=== PATIENT | female | born 1965 | race Caucasian/White ===

== ENCOUNTER 2016-07-31 10:31 | Emergency (ER) | payer BC ==
[2016-07-31] MEDS ORDERED: ONDANSETRON 4 MG TAB.RAPDIS PO ONE (10:49)
[2016-07-31] MEDS ORDERED: HYDROCODONE/ACETAMINOPHEN 5-325 MG TABLET PO ONE (10:49)
--- NOTE | 2016-07-31 10:53 | ER Document Report ---
ED Medical Screen (RME) - General Stated Complaint: LEFT SIDE PAIN Mode of Arrival: Ambulatory Information source: Patient Notes: 51 y/o F presents to ED c/o abd pain. Pt reports pain to mid abd that radiates around left side to left back. Persisting over the last 3 weeks. Last BM yesterday. States pain is sharp and feels like skin is burning/tender. Denies fever. I have greeted and performed a rapid initial assessment of this patient. A comprehensive ED assessment and evaluation of the patient, analysis of test results and completion of the medical decision making process will be conducted by additional ED providers. - Related Data Allergies/Adverse Reactions: cefaclor [From Ceclor] Allergy (Verified 07/31/16 10:48) Physical Exam - General General appearance: Alert In distress: None - Respiratory Respiratory status: No respiratory distress - Cardiovascular Pulses: Normal: Radial Normal capillary refill: Yes
--- NOTE | 2016-07-31 11:08 | ER Document Report ---
ED GI/ - General Chief Complaint: Abdominal Pain Stated Complaint: LEFT SIDE PAIN Time seen by provider: 11:08 Mode of Arrival: Ambulatory Notes: 51 yo untreated diabetic (no insuranc) c/o LLQ abdominal pain for 3 weeks, is getting worse past few days. Crying. Nausea but no vomiting. No constipation or diarrhea. No dysuria. No vaginal dx. hx hyst. cholecystectomy. No hx crohns, colitis, diverticulitis. No fever. TRAVEL OUTSIDE OF THE [place] IN LAST 30 DAYS: No - Related Data Allergies/Adverse Reactions: cefaclor [From [email or web address]] Allergy (Verified 07/31/16 10:48) Past Medical History - General Information source: Patient - Social History Smoking Status: Former Smoker Chew tobacco use (# tins/day): No Frequency of alcohol use: Rare Drug Abuse: None Lives with: Spouse/Significant other Family History: Reviewed & Not Pertinent Patient has suicidal ideation: No Patient has homicidal ideation: No Endocrine Medical History: Reports: Hx Diabetes Mellitus Type 2 Renal/ Medical History: Denies: Hx Peritoneal Dialysis Past Surgical History: Reports: Hx Cholecystectomy, Hx Hysterectomy Review of Systems - Review of Systems Constitutional: No symptoms reported EENT: No symptoms reported Cardiovascular: No symptoms reported Respiratory: No symptoms reported Gastrointestinal: See HPI Genitourinary: No symptoms reported Female Genitourinary: No symptoms reported Musculoskeletal: No symptoms reported Skin: No symptoms reported Hematologic/Lymphatic: No symptoms reported Neurological/Psychological: No symptoms reported Physical Exam - Vital signs Vitals: Temp Pulse Resp BP Pulse Ox 97.9 F 98 18 113/74 99 07/31/16 10:39 07/31/16 10:39 07/31/16 10:39 07/31/16 10:39 07/31/16 10:39 Interpretation: Normal - General General appearance: Appears well, Alert, Anxious - HEENT Head: Normocephalic, Atraumatic Eyes: Normal Conjunctiva: Normal Pupils: PERRL Mucous membranes: Dry Pharynx: Normal Neck: Supple. No: Lymphadenopathy - Respiratory Respiratory status: No respiratory distress Chest status: Nontender Breath sounds: Normal Chest palpation: Normal - Cardiovascular Rhythm: Regular Heart sounds: Normal auscultation Murmur: No - Abdominal Inspection: Normal Distension: No distension Bowel sounds: Normal Tenderness: Tender - LLQ. No: Guarding, Rebound Organomegaly: No organomegaly. No: Hepatomegaly, Splenomegaly - Back Back: Normal, Nontender. No: CVA tenderness - Extremities General upper extremity: Normal inspection, Nontender, Normal color, Normal ROM , Normal temperature General lower extremity: Normal inspection, Nontender, Normal color, Normal ROM , Normal temperature, Normal weight bearing. No: Zachary's sign - Neurological Neuro grossly intact: Yes Cognition: Normal Orientation: AAOx4 Sanchez Coma Scale Eye Opening: Spontaneous [place] Coma Scale Verbal: Oriented [place] Coma Scale Motor: Obeys Commands [place] Coma Scale Total: 15 Speech: Normal Motor strength normal: LUE, RUE, LLE, RLE Sensory: Normal - Psychological Associated symptoms: Normal affect, Normal mood - Skin Skin Temperature: Warm Skin Moisture: Dry Skin Color: Normal Skin irregularity: negative: Rash Course - Re-evaluation Re-evalutation: 07/31/16 11:44 I have consulted with the supervisory physician per [facility] Guidelines. For the CT scan, Dr. ANDERSON 07/31/16 12:25 Patient has had a hysterectomy but has a faint positive hCG, inflammatory bowel disease can cause a but I did order a quantitative hCG. 07/31/16 15:16 Will start patient back on metformin her glucose came down to 294 with 2 L of IV fluid. He T scan shows constipation otherwise normal. Discussed the case again with Dr. ANDERSON. 07/31/16 15:19 1 more liter of NS ordered. Pt feels better, non tender left abdomen. Dr. Anderson OK with sending pt home. Advised pt to take miralax, not laxatives which will cause cramping. - Vital Signs Vital signs: Temp Pulse Resp BP Pulse Ox 97.9 F 84 18 122/64 98 07/31/16 16:31 07/31/16 16:31 07/31/16 16:31 07/31/16 16:31 07/31/16 16:31 - Laboratory Result Diagrams: 07/31/16 11:15 07/31/16 11:15 Laboratory results interpreted by me: 07/31/16 07/31/16 07/31/16 11:15 11:15 11:15 Hgb 15.6 H Sodium 136.1 L Chloride 97 L Glucose 424 H* POC Glucose Calcium 10.3 H Total Bilirubin 1.7 H Serum HCG, Qual POSITIVE H Urine Glucose (UA) Urine Ketones Ur Leukocyte Esterase 07/31/16 07/31/16 11:15 14:50 Hgb Sodium Chloride Glucose POC Glucose 294 H Calcium Total Bilirubin Serum HCG, Qual Urine Glucose (UA) >=500 H Urine Ketones 80 H Ur Leukocyte Esterase LARGE H Discharge - Discharge Clinical Impression: constipation, left lower quadrant abdominal pain, dehydration, uncontrolled diabetes Condition: Good Disposition: HOME, SELF-CARE Instructions: Abdominal Pain (OM), Constipation (OM), Diabetes (OM), Glucophage ([facility]), Family Physicians / Practices Additional Instructions: to er if worse take miralax 1 capful in full glass of water daily drink 2 liters of water daily copy of labs and ct scan given to you take the metformin daily see family practice doctor next week for establishing care and glucose recheck Prescriptions: Metformin HCl [Metformin HCl ER] 500 mg PO BID #[id number]
[2016-07-31 11:34] LABS: HEMATOCRIT 44.2 % (36.0-47.0); HEMOGLOBIN 15.6 g/dL (12.0-15.5); HGB HCT DIFFERENCE 2.6; MEAN CORPUSCULAR HEMOGLOBIN 31.2 pg (27.0-33.4); MEAN CORPUSCULAR HGB CONC 35.4 g/dL (32.0-36.0); MEAN CORPUSCULAR VOLUME 88 fl (80-97); RED BLOOD COUNT 5.01 10^6/uL (3.72-5.28); RED CELL DISTRIBUTION WIDTH 12.6 % (11.5-14.0); WHITE BLOOD COUNT 8.2 10^3/uL (4.0-10.5)
[2016-07-31 11:38] LABS: APPEARANCE,URINE SLIGHTLY-CLOUDY; BILIRUBIN,URINE NEGATIVE (NEGATIVE); GLUCOSE, URINE >=500 mg/dL (NEGATIVE); KETONES,URINE 80 mg/dL (NEGATIVE); LEUKOCYTE ESTERASE,URINE LARGE (NEGATIVE); NITRITE,URINE NEGATIVE (NEGATIVE); PROTEIN,URINE NEGATIVE (NEGATIVE); URINE SPECIFIC GRAVITY 1.033; UROBILINOGEN,URINE NEGATIVE mg/dL (<2.0)
[2016-07-31] MEDS ORDERED: MORPHINE SULFATE 10 MG/ML INJ IV ONE (11:40)
[2016-07-31] MEDS ORDERED: ONDANSETRON HCL INJ/PF 4 MG/2 ML SDV IV ONE (11:40)
[2016-07-31 11:56] LABS: ALANINE AMINOTRANSFERASE 33 U/L (9-52); ALBUMIN 4.7 g/dL (3.5-5.0); ALKALINE PHOSPHATASE 109 U/L (38-126); ANION GAP 15 (5-19); ASPARTATE AMINO TRANSFERASE 17 U/L (14-36); BILIRUBIN,TOTAL 1.7 mg/dL (0.2-1.3); BLOOD UREA NITROGEN 11 mg/dL (7-20); CALCIUM 10.3 mg/dL (8.4-10.2); CARBON DIOXIDE 24 mmol/L (22-30); CHLORIDE 97 mmol/L (98-107); CREATININE RESULT 0.54 mg/dL (0.52-1.25); LIPASE 149.3 U/L (23-300); POTASSIUM 4.8 mmol/L (3.6-5.0); SODIUM 136.1 mmol/L (137-145); TOTAL PROTEIN 7.4 g/dL (6.3-8.2)
[2016-07-31 11:58] LABS: BASOPHILS % (MANUAL) 0 % (0-2); EOSINOPHILS % (MANUAL) 0 % (0-6); LYMPHOCYTES % (MANUAL) 28 % (13-45); TOTAL CELLS COUNTED 100
[2016-07-31 11:59] LABS: RBC MORPHOLOGY COMMENT NORMO-CYTIC/CHROMIC
[2016-07-31 12:07] LABS: GLUCOSE 424 mg/dL (75-110)
[2016-07-31] MEDS ORDERED: NORMAL SALINE 1000 ML 2,000 ML IV ONE (12:13)
[2016-07-31] MEDS ORDERED: DIPHENHYDRAMINE HCL 50 MG/ML VIAL IV ONE (13:40)
[2016-07-31] MEDS ORDERED: NORMAL SALINE 1000 ML 1,000 ML IV ONE (15:28)
[2016-07-31 16:32] VITALS: BP 122/64
== END 2016-07-31 16:31 | disposition home or self-care (01) ==
LOC: ER 10:31
DX: K59.00 Constipation, unspecified (principal); E11.65 Type 2 diabetes mellitus with hyperglycemia; E86.0 Dehydration; R10.32 Left lower quadrant pain; R11.0 Nausea; Z88.1 Allergy status to other antibiotic agents; Z87.891 Personal history of nicotine dependence; Z90.49 Acquired absence of other specified parts of digestive tract; Z90.710 Acquired absence of both cervix and uterus
CPT/HCPCS: 99284; 96361; 96374; 96375; 36415; 87086; 82962; 84702; 83690; 84703; 85025; 87088; 80053; 81001; 74177; J1200; S0119; J2270; J2405; J7030

== ENCOUNTER 2016-08-03 21:05 | Emergency (ER) | payer BC ==
--- NOTE | 2016-08-03 21:48 | ER Document Report ---
ED Medical Screen (RME) - General Stated Complaint: ABDOMINAL PAIN Mode of Arrival: Ambulatory Information source: Patient Notes: Patient complains of left lower pelvic pain and left flank pain for the past 3 weeks. Patient states she was seen here 4 days ago for this same complaint. Patient states that she was treated for constipation and diabetes. Patient had a CT abdomen and pelvis which just showed a large amount of stool. Last BM was today. hx: Diabetes, colon cancer, splenic aneurysm, cholecystectomy, bladder tack, hyst I have greeted and performed a rapid initial assessment of this patient. A comprehensive ED assessment and evaluation of the patient, analysis of test results and completion of the medical decision making process will be conducted by additional ED providers. TRAVEL OUTSIDE OF THE [place] IN LAST 30 DAYS: No - Related Data Allergies/Adverse Reactions: cefaclor [From Ceclor] Allergy (Verified 08/03/16 21:45) Past Medical History Endocrine Medical History: Reports: Hx Diabetes Mellitus Type 2 Renal/ Medical History: Denies: Hx Peritoneal Dialysis Past Surgical History: Reports: Hx Bowel Surgery, Hx Cholecystectomy, Hx Hysterectomy Physical Exam - Abdominal Tenderness: Tender - Left lower quadrant
[2016-08-03 22:44] LABS: ABSOLUTE BASOPHILS # (AUTO) 0.1 10^3/uL (0.0-0.2); ABSOLUTE EOSINOPHILS # (AUTO) 0.2 10^3/uL (0.0-0.6); ABSOLUTE LYMPHOCYTES (AUTO) 2.2 10^3/uL (0.5-4.7); ABSOLUTE MONOCYTES (AUTO) 0.5 10^3/uL (0.1-1.4); ABSOLUTE NEUT (AUTO) 5.9 10^3/uL (1.7-8.2); EOSINOPHILS % (AUTO) 1.7 % (0-6); HEMATOCRIT 42.4 % (36.0-47.0); HEMOGLOBIN 14.7 g/dL (12.0-15.5); HGB HCT DIFFERENCE 1.7; LYMPHOCYTES % (AUTO) 24.6 % (13-45); MEAN CORPUSCULAR HEMOGLOBIN 31.1 pg (27.0-33.4); MEAN CORPUSCULAR HGB CONC 34.6 g/dL (32.0-36.0); MEAN CORPUSCULAR VOLUME 90 fl (80-97); MONOCYTES % (AUTO) 5.8 % (3-13); RED BLOOD COUNT 4.72 10^6/uL (3.72-5.28); RED CELL DISTRIBUTION WIDTH 12.9 % (11.5-14.0); SEGMENTED NEUTROPHILS % (AUTO) 66.9 % (42-78); WHITE BLOOD COUNT 8.8 10^3/uL (4.0-10.5)
[2016-08-03 22:52] LABS: APPEARANCE,URINE CLEAR; BILIRUBIN,URINE NEGATIVE (NEGATIVE); GLUCOSE, URINE >=500 mg/dL (NEGATIVE); KETONES,URINE 20 mg/dL (NEGATIVE); LEUKOCYTE ESTERASE,URINE LARGE (NEGATIVE); NITRITE,URINE NEGATIVE (NEGATIVE); PROTEIN,URINE NEGATIVE (NEGATIVE); URINE SPECIFIC GRAVITY 1.027; UROBILINOGEN,URINE NEGATIVE mg/dL (<2.0)
[2016-08-03 23:00] LABS: ALANINE AMINOTRANSFERASE 102 U/L (9-52); ALBUMIN 4.1 g/dL (3.5-5.0); ALKALINE PHOSPHATASE 127 U/L (38-126); ANION GAP 13 (5-19); ASPARTATE AMINO TRANSFERASE 14 U/L (14-36); BILIRUBIN,TOTAL 0.9 mg/dL (0.2-1.3); BLOOD UREA NITROGEN 12 mg/dL (7-20); CALCIUM 9.8 mg/dL (8.4-10.2); CARBON DIOXIDE 24 mmol/L (22-30); CHLORIDE 99 mmol/L (98-107); CREATININE RESULT 0.47 mg/dL (0.52-1.25); GLUCOSE 381 mg/dL (75-110); LIPASE 203.8 U/L (23-300); POTASSIUM 4.3 mmol/L (3.6-5.0); SODIUM 135.5 mmol/L (137-145); TOTAL PROTEIN 6.6 g/dL (6.3-8.2)
--- NOTE | 2016-08-03 23:15 | ER Document Report ---
ED General - General Time seen by provider: 23:10 Mode of Arrival: Ambulatory Information source: Patient, Relative - spouse TRAVEL OUTSIDE OF THE [place] IN LAST 30 DAYS: No - HPI Onset: Other - see HPI Onset/Duration: Gradual, Persistent Quality of pain: Burning, Sharp, Stabbing Associated symptoms: Nausea Exacerbated by: Movement, Food Similar symptoms previously: Yes - 07/31/16 Recently seen / treated by doctor: Yes - 07/31/16 in ED <MAXINE PIERCE - Last Filed: 08/04/16 02:53> <RAIN LUNA - Last Filed: 08/04/16 04:34> - General Chief Complaint: Abdominal Pain Stated Complaint: ABDOMINAL PAIN Notes: Patient is a 51-year-old female presenting to the emergency department with complaints of abdominal pain. Patient was recently seen emergency department on 07/31/16 for the same complaint. Patient was treated for constipation and diabetes mellitus and was placed on metformin. Patient states that she still has the pain and that she also has some pain in her back. Patient's last bowel movement was today. Patient states that her pain is getting worse. Patient states that these have with movement or food exacerbates the pain. Patient is also nauseous. Patient's blood glucose level is 384. Patient has a history of colon cancer, a splenic aneurysm, a cholecystectomy, and a hysterectomy. (MAXINE PIERCE) - Related Data Allergies/Adverse Reactions: cefaclor [From Ceclor] Allergy (Verified 08/03/16 21:45) morohine Allergy (Uncoded 08/04/16 03:42) Past Medical History - General Information source: Patient, Relative - spouse - Social History Smoking Status: Former Smoker Cigarette use (# per day): No Chew tobacco use (# tins/day): No Frequency of alcohol use: Occasional Drug Abuse: None Family History: None Endocrine Medical History: Reports: Hx Diabetes Mellitus Type 2 Malignancy Medical History: Reports: Other - colon cancer Past Surgical History: Reports: Hx Bowel Surgery - splenic aneurysm, Hx Cholecystectomy, Hx Hysterectomy <MAXINE PIERCE - Last Filed: 08/04/16 02:53> Review of Systems - Review of Systems Constitutional: No symptoms reported EENT: No symptoms reported Cardiovascular: No symptoms reported Respiratory: No symptoms reported Gastrointestinal: See HPI, Abdominal pain, Nausea, Last bowel movement - today Genitourinary: No symptoms reported Female Genitourinary: No symptoms reported Musculoskeletal: No symptoms reported Skin: No symptoms reported Hematologic/Lymphatic: No symptoms reported Neurological/Psychological: No symptoms reported -: Yes All other systems reviewed and negative <MAXINE PIERCE - Last Filed: 08/04/16 02:53> Physical Exam - Vital signs Interpretation: Normal - General General appearance: Alert, Other - appears uncomfortable In distress: Mild - HEENT Head: Normocephalic, Atraumatic Eyes: Normal Pupils: PERRL Mucous membranes: Moist - Respiratory Respiratory status: No respiratory distress Chest status: Nontender Breath sounds: Normal Chest palpation: Normal - Cardiovascular Rhythm: Regular Heart sounds: Normal auscultation Murmur: No - Abdominal Inspection: Healed incision - to the midline abdomen consistent with previous abdominal surgeries Distension: No distension Bowel sounds: Normal Tenderness: Tender - epigastric pain and tenderness to palpation Organomegaly: No organomegaly - Back Back: Normal, Nontender - Extremities General upper extremity: Normal inspection, Normal ROM, Normal strength General lower extremity: Normal inspection, Normal ROM, Normal strength - Neurological Neuro grossly intact: Yes Cognition: Normal Orientation: AAOx4 [place] Coma Scale Eye Opening: Spontaneous [place] Coma Scale Verbal: Oriented [place] Coma Scale Motor: Obeys Commands [place] Coma Scale Total: 15 Speech: Normal - Psychological Associated symptoms: Normal affect, Tearful - Skin Skin Temperature: Warm Skin Moisture: Dry <STANMAXINE - Last Filed: 08/04/16 02:53> Course - Laboratory Result Diagrams: 08/03/16 22:32 08/03/16 22:32 <ROBELKEVONLIZETMAXINE - Last Filed: 08/04/16 02:53> - Laboratory Result Diagrams: 08/03/16 22:32 08/03/16 22:32 <RAIN LUNA - Last Filed: 08/04/16 04:34> - Re-evaluation Re-evalutation: 08/04/16 Patient with epigastric and left-sided lower chest tenderness to palpation. Patient had a CTA done to rule out PE or any pleural cause of her symptoms. Patient is found to have gastric diverticulum. Patient was given pain medication and also a GI cocktail. She is feeling much better. Patient will be given information to follow-up with gastroenterology. She will also be given prescription for Zofran, Carafate, omeprazole, ranitidine. Understands agrees with plan. Stable for discharge home. Return if any worsening or concerning symptoms. Taking by mouth. Stable for discharge. (RAIN LUNA) - Vital Signs Vital signs: Temp Pulse Resp BP Pulse Ox 97.6 F 89 18 127/61 H 97 08/04/16 02:40 08/04/16 02:40 08/04/16 02:40 08/04/16 02:40 08/04/16 02:40 (MAXINE PIERCE) (RAIN LUNA) - Laboratory Laboratory results interpreted by me: 08/03/16 08/03/16 08/03/16 22:32 22:32 23:11 Sodium 135.5 L Creatinine 0.47 L Glucose 381 H POC Glucose 384 H ALT 102 H Alkaline Phosphatase 127 H Urine Glucose (UA) >=500 H Urine Ketones 20 H Ur Leukocyte Esterase LARGE H (MAXINE PIERCE) (RAIN LUNA) Discharge <MAXINE PIERCE - Last Filed: 08/04/16 02:53> <RAIN LUNA - Last Filed: 08/04/16 04:34> - Discharge Clinical Impression: Gastric diverticulum, Epigastric pain Condition: Stable Disposition: HOME, SELF-CARE Instructions: Evaluation of Upper Abdominal Pain ([facility]), Gastroenterology Additional Instructions: Please follow-up with a carton folder regarding your gastric diverticulum. Please return if your symptoms worsen. Prescriptions: Hydrocodone/Acetaminophen [Buckingham 5-325 mg Tablet] 1 tab PO BIDP PRN #20 tablet PRN Reason: Omeprazole 20 mg PO DAILY #30 tablet. Ondansetron [Zofran Odt 4 mg Tablet] 1 - 2 tab PO Q4H PRN #15 tab.rapdis PRN Reason: For Nausea/Vomiting Ranitidine HCl 150 mg PO BID #60 tablet Sucralfate [Carafate 1 gm Tablet] 1 gm PO ACHS #60 tablet Forms: Smoking Cessation Education Scribe Attestation: 08/04/16 04:34 I personally performed the services described in the documentation, reviewed and edited the documentation which was dictated to the scribe in my presence, and it accurately records my words and actions. (RAIN LUNA) Scribe Documentation - Scribe Written by Scribe:: Maxine Pierce 08/04/16 02:50 acting as scribe for :: Winnie <MAXINE PIERCE - Last Filed: 08/04/16 02:53>
[2016-08-03] MEDS ORDERED: NORMAL SALINE 1000 ML 1,000 ML IV ONE (23:16)
[2016-08-03] MEDS ORDERED: HYDROCODONE/ACETAMINOPHEN 5-325 MG TABLET PO ONE (23:16)
[2016-08-03] MEDS ORDERED: ONDANSETRON HCL INJ/PF 4 MG/2 ML SDV IV ONE (23:16)
[2016-08-04] MEDS ORDERED: INSULIN REG, HUMAN 100 UNIT/ML 3 ML VIAL (PYX) IV ONE (00:02)
[2016-08-04] MEDS ORDERED: SUCRALFATE 1 GM TABLET PO ONE (00:54)
[2016-08-04] MEDS ORDERED: MAG HYDROX/AL HYDROX/SIMETH SUSP 30 ML UDCUP PO ONE (00:54)
[2016-08-04] MEDS ORDERED: FAMOTIDINE 20 MG TABLET PO ONE (00:54)
[2016-08-04] MEDS ORDERED: HYDROCODONE/ACETAMINOPHEN 5-325 MG 6 TAB/DSPK PO PRN (01:55)
[2016-08-04] MEDS ORDERED: ONDANSETRON ODT 4 MG TAB (6 TAB/DSPK) PO PRN (01:57)
[2016-08-04 03:48] VITALS: BP 127/61
== END 2016-08-04 02:40 | disposition home or self-care (01) ==
LOC: ER 21:05
DX: K31.4 Gastric diverticulum (principal); R10.13 Epigastric pain; E11.9 Type 2 diabetes mellitus without complications; Z79.84 Long term (current) use of oral hypoglycemic drugs; M54.9 Dorsalgia, unspecified; Z85.038 Personal history of other malignant neoplasm of large intestine; Z90.49 Acquired absence of other specified parts of digestive tract; Z90.710 Acquired absence of both cervix and uterus; Z88.6 Allergy status to analgesic agent
CPT/HCPCS: 99284; 96361; 96374; 36415; 82962; 83690; 85025; 80053; 81001; 84484; 71275; J1815; J2405; J7030

== ENCOUNTER 2016-08-11 08:25 | Day surgery (SDC) | payer BC ==
[~2016-08-11 08:25] MED LIST: PROPOFOL INJ 200 MG/20 ML VIAL IV ONE
[2016-08-11] MEDS ORDERED: INSULIN REG, HUMAN 100 UNIT/ML 3 ML VIAL (PYX) ONE ×2 (09:10→09:14)
[2016-08-11 11:04] VITALS: BP 123/71
--- NOTE | 2016-08-11 13:02 | Operative Report ---
Operative Report DATE OF SURGERY: 08/11/16 Operative Report: The risks, benefits and alternatives of the procedure including risks of bleeding, perforation requiring surgery are explained to the patient in detail and informed consent is obtained. Patient is taken back to the endoscopy suite. She is placed in a left, lateral decubital position. Timeout is called. Propofol medication is administered. A rectal examination is done which did not reveal any masses, tears or fissures. An Olympus video scope was inserted into the patient's rectum. The scope was then carefully advanced all the way to the cecum. The cecum was identified by the usual anatomical landmarks including the ileocecal valve as well as the appendiceal office. Photodocumentation was obtained. Prep is good. The scope was then sequentially pulled back via the various segments of the colon including the ascending colon, hepatic flexure, transverse colon, splenic flexure, descending colon and finally into the rectosigmoid colon. Retroflexion maneuvers performed. Following this the patient's stretcher was turned around and the EGD performed The risks benefits and alternatives of the procedure explained to the patient in detail and informed consent is obtained that GIF Olympus video scope was inserted into the patient's mouth and hypopharynx the esophagus is identified intubated and insufflated the scope was then advanced through the esophagus stomach and duodenum retroflexion maneuver is done the esophagus stomach and first and second portions of the duodenum examined PREOPERATIVE DIAGNOSIS: Change of bowel habits. Abdominal pain. Gastroesophageal reflux disease POSTOPERATIVE DIAGNOSIS: Colon polyp removed via snare polypectomy. Right- sided colon biopsy rule out collagenous, lymphocytic, microscopic colitis. Internal hemorrhoids. Esophagitis. Gastritis biopsies obtained to rule out Helicobacter pylori OPERATION: Colonoscopy with snare polypectomy. Colonoscopy with biopsy. EGD with biopsy SURGEON: IVY ROSARIO ANESTHESIA: LMAC TISSUE REMOVED OR ALTERED: Right-sided colon specimens obtained to rule out for microscopic, collagenous, lymphocytic colitis. Colon polyp retrieved. Esophageal biopsies rule out Batista's esophagus. Gastritis status post biopsy rule out Helicobacter pylori COMPLICATIONS: None. ESTIMATED BLOOD LOSS: none. INTRAOPERATIVE FINDINGS: As described above. PROCEDURE: Patient tolerated the procedure well. No immediate postprocedure complications are noted. Patient is discharged in good condition. Discharge date 08/11/2016. Discharge diet: Regular. Discharge activity: Regular. Surveillance colonoscopy in 5 years depending on the pathology of the polyp. Patient does have a 2-3 week follow-up to discuss findings. Patient is instructed to call the office or proceed to the emergency room if there are any further problems or questions. Once I receive the biopsy report I'll go ahead and contact the patient to update her.
== END 2016-08-11 11:00 | disposition home or self-care (01) ==
LOC: END 08:25
PROVIDERS: ATTEND Internal Medicine Gastroenterology
PROC: 0DBN8ZX Excision of Sigmoid Colon, Via Natural or Artificial Opening Endoscopic, Diagnostic (ICD-10-PCS; 2016-08-11)
PROC: 0DB68ZX Excision of Stomach, Via Natural or Artificial Opening Endoscopic, Diagnostic (ICD-10-PCS; principal; 2016-08-11 10:30)
PROC: 0DB58ZX Excision of Esophagus, Via Natural or Artificial Opening Endoscopic, Diagnostic (ICD-10-PCS; 2016-08-11 10:30)
PROC: 0DBF8ZX Excision of Right Large Intestine, Via Natural or Artificial Opening Endoscopic, Diagnostic (ICD-10-PCS; 2016-08-11 10:30)
DX: K29.50 Unspecified chronic gastritis without bleeding (principal); B96.81 Helicobacter pylori [H. pylori] as the cause of diseases classified elsewhere; K21.0 Gastro-esophageal reflux disease with esophagitis; D12.5 Benign neoplasm of sigmoid colon; K52.9 Noninfective gastroenteritis and colitis, unspecified; R19.4 Change in bowel habit; K21.9 Gastro-esophageal reflux disease without esophagitis; E11.9 Type 2 diabetes mellitus without complications; Z79.84 Long term (current) use of oral hypoglycemic drugs; Z79.899 Other long term (current) drug therapy; Z90.49 Acquired absence of other specified parts of digestive tract
CPT/HCPCS: 43239; 45380; 45385; 82962; 88342 ×2; 88305 ×2; J1815; J2704; 810

== ENCOUNTER 2016-08-27 22:57 | Emergency (ER) | payer BC ==
[2016-08-27 23:37] LABS: ABSOLUTE BASOPHILS # (AUTO) 0.1 10^3/uL (0.0-0.2); ABSOLUTE EOSINOPHILS # (AUTO) 0.2 10^3/uL (0.0-0.6); ABSOLUTE MONOCYTES (AUTO) 0.5 10^3/uL (0.1-1.4); ABSOLUTE NEUT (AUTO) 5.1 10^3/uL (1.7-8.2); BASOPHILS % (AUTO) 0.9 % (0-2); EOSINOPHILS % (AUTO) 2.2 % (0-6); HEMATOCRIT 44.8 % (36.0-47.0); HEMOGLOBIN 15.9 g/dL (12.0-15.5); HGB HCT DIFFERENCE 2.9; LYMPHOCYTES % (AUTO) 25.9 % (13-45); MEAN CORPUSCULAR HEMOGLOBIN 31.3 pg (27.0-33.4); MEAN CORPUSCULAR HGB CONC 35.5 g/dL (32.0-36.0); MEAN CORPUSCULAR VOLUME 88 fl (80-97); MONOCYTES % (AUTO) 6.3 % (3-13); RED BLOOD COUNT 5.07 10^6/uL (3.72-5.28); RED CELL DISTRIBUTION WIDTH 12.8 % (11.5-14.0); SEGMENTED NEUTROPHILS % (AUTO) 64.7 % (42-78); WHITE BLOOD COUNT 7.8 10^3/uL (4.0-10.5)
[2016-08-27 23:41] LABS: APPEARANCE,URINE CLEAR; BILIRUBIN,URINE NEGATIVE (NEGATIVE); GLUCOSE, URINE >=500 mg/dL (NEGATIVE); KETONES,URINE 80 mg/dL (NEGATIVE); LEUKOCYTE ESTERASE,URINE TRACE (NEGATIVE); NITRITE,URINE POSITIVE (NEGATIVE); PROTEIN,URINE NEGATIVE (NEGATIVE); URINE SPECIFIC GRAVITY 1.032; UROBILINOGEN,URINE NEGATIVE mg/dL (<2.0)
[2016-08-28 00:02] LABS: ALANINE AMINOTRANSFERASE 20 U/L (9-52); ALBUMIN 4.5 g/dL (3.5-5.0); ALKALINE PHOSPHATASE 90 U/L (38-126); ANION GAP 15 (5-19); ASPARTATE AMINO TRANSFERASE 16 U/L (14-36); BILIRUBIN,TOTAL 1.2 mg/dL (0.2-1.3); BLOOD UREA NITROGEN 13 mg/dL (7-20); CALCIUM 10.4 mg/dL (8.4-10.2); CARBON DIOXIDE 25 mmol/L (22-30); CHLORIDE 97 mmol/L (98-107); CREATININE RESULT 0.55 mg/dL (0.52-1.25); LIPASE 254.7 U/L (23-300); POTASSIUM 3.9 mmol/L (3.6-5.0); SODIUM 137.3 mmol/L (137-145); TOTAL PROTEIN 7.2 g/dL (6.3-8.2)
[2016-08-28 00:11] LABS: GLUCOSE 407 mg/dL (75-110)
[2016-08-28] MEDS ORDERED: NORMAL SALINE 1000 ML 1,000 ML IV ONE (03:09)
[2016-08-28] MEDS ORDERED: HYDROMORPHONE HCL INJ/PF 2 MG/ML AMPULE IV ONE (03:09)
[2016-08-28] MEDS ORDERED: HYDROMORPHONE HCL INJ/PF 2 MG/ML AMPULE IM ONE (03:09)
[2016-08-28] MEDS ORDERED: INSULIN REG, HUMAN 100 UNIT/ML 3 ML VIAL (PYX) SUBCUT ONE (03:10)
[2016-08-28] MEDS ORDERED: GABAPENTIN 300 MG CAPSULE PO ONE (03:16)
--- NOTE | 2016-08-28 03:25 | ER Document Report ---
ED General - General Chief Complaint: Abdominal Pain Stated Complaint: ABDOMINAL/BACK PAIN Notes: Patient is a 51-year-old female presents for complaint of abdominal pain and back pain. She says the pain is been ongoing for 2-3 months. She's been seen here several times for this. She's had CT scans which were negative. She does have previous surgical history including surgery for colon cancer as well as surgery due to splenic aneurysm. No fevers. No infections. Some nausea. No diarrhea. She's had some constipated depression. She was referred to GI. She was seen by Dr. Rosario. Dr. Rosario performed a upper GI endoscopy as well as a colonoscopy. He took a stomach biopsy which shows moderate chronic gastritis and her being positive for Helicobacter. He also obtained a sigmoid polyp. The polyp came back as a tubular adenoma. No rectal bleeding. Patient says she feels as if the pain is radiating from her back and around the flank. She does not feel the pain is constipation related because she continued have the same pain despite taking the bowel prep and the relieved of her stool. Patient moved to the area about one year ago. They recently got health insurance. Her first appointment with her primary care doctor is on the of this month. She does take metformin for blood sugars but says it is not well controlled. She also complains of some neuropathy into her feet. TRAVEL OUTSIDE OF THE [place] IN LAST 30 DAYS: No - Related Data Allergies/Adverse Reactions: morphine Allergy (Severe, Verified 08/11/16 08:55) Facial swelling cefaclor [From Ceclor] Allergy (Mild, Verified 08/11/16 08:55) Generalized rash Past Medical History - Social History Smoking Status: Former Smoker Chew tobacco use (# tins/day): No Frequency of alcohol use: None Drug Abuse: None Family History: None Patient has suicidal ideation: No Patient has homicidal ideation: No - Past Medical History Cardiac Medical History: Denies: Hx Coronary Artery Disease, Hx Heart Attack, Hx Hypertension Pulmonary Medical History: Denies: Hx Asthma, Hx Bronchitis, Hx COPD, Hx Pneumonia Neurological Medical History: Denies: Hx Cerebrovascular Accident, Hx Seizures Endocrine Medical History: Reports: Hx Diabetes Mellitus Type 2 Renal/ Medical History: Denies: Hx Peritoneal Dialysis Musculoskeltal Medical History: Denies Hx Arthritis Past Surgical History: Reports: Hx Bowel Surgery - splenic aneurysm, Hx Cholecystectomy, Hx Hysterectomy - Immunizations Hx Diphtheria, Pertussis, Tetanus Vaccination: Yes Review of Systems - Review of Systems Notes: My Normal Review Basic REVIEW OF SYSTEMS: CONSTITUTIONAL : Denies fever, chills, or sweats. Denies recent illness. EENT: Denies eye, ear, throat, or mouth pain or symptoms. Denies nasal or sinus congestion. CARDIOVASCULAR: Denies chest pain. RESPIRATORY: Denies cough, cold, or chest congestion. Denies shortness of breath, difficulty breathing, or wheezing. GASTROINTESTINAL: Has left-sided abdominal pain. Denies nausea, vomiting, or diarrhea. Denies constipation. Last BM: GENITOURINARY: Denies difficulty urinating, painful urination, burning, frequency, or blood in urine. MUSCULOSKELETAL: Left-sided back pain SKIN: Denies rash or skin lesions. NEUROLOGICAL: Denies altered mental status or loss of consciousness. Denies headache. Denies weakness or paralysis or loss of use of either side. Denies problems with gait or speech. Denies sensory or motor loss. ALL OTHER SYSTEMS REVIEWED AND NEGATIVE. Physical Exam - Vital signs Vitals: Temp Pulse Resp BP Pulse Ox 97.7 F 95 16 142/87 H 99 08/27/16 23:03 08/27/16 23:03 08/27/16 23:03 08/27/16 23:03 08/27/16 23:03 - Notes Notes: General Appearance: Well nourished, alert, cooperative, no acute distress, moderate obvious discomfort. Vitals: reviewed, See vital signs table. Head: no swelling or tenderness to the head Eyes: PERRL, EOMI, Conjuctiva clear Mouth: No decreasd moisture Neck: Supple, no neck tenderness, No thyromegaly Lungs: No wheezing, No rales, No rhonci, No accessory muscle use, good air exchange bilaterally. Heart: Normal rate, Regular rythm, No murmur, no rub Abdomen: Normal BS, soft, No rigidity, moderate left-sided abdominal tenderness to palpation, No guarding, no rebound, no abdominal masses, no organomegaly Back: Tenderness to palpation over left side lumbar paraspinal musculature. Pain radiates around flank when push on low back. Extremities: strength 5/5 in all extremities, good pulses in all extremities, no swelling or tenderness in the extremities, no edema. Skin: warm, dry, appropriate color, no rash Neuro: speech clear, oriented x 3, normal affect, responds appropriately to questions. Course - Vital Signs Vital signs: Temp Pulse Resp BP Pulse Ox 97.8 F 65 16 139/69 H 97 08/28/16 04:46 08/28/16 04:46 08/28/16 04:46 08/28/16 04:46 08/28/16 04:46 - Laboratory Result Diagrams: 08/27/16 23:17 08/27/16 23:17 Laboratory results interpreted by me: 08/27/16 08/27/16 08/27/16 23:17 23:17 23:17 Hgb 15.9 H Chloride 97 L Glucose 407 H* Calcium 10.4 H Urine Glucose (UA) >=500 H Urine Ketones 80 H Urine Nitrite POSITIVE H Ur Leukocyte Esterase TRACE H - EKG Interpretation by Me Additional EKG results interpreted by me: 08/28/16 04:14 EKG is reviewed and interpreted by me. EKG shows sinus bradycardia with a rate of [address] segment elevation or depression. No ischemic T wave inversions. HI level, QRS duration, QTC intervals are within normal range. - Transfer of Care Notes: 08/28/16 05:03 The exact cause of patient's pain is still not 100% clear. I think there is some component of gastritis being that she is age but were positive in her upper endoscopy did show chronic gastritis. There may be a component of neuropathy. Patient's pain is easily reproducible palpation of the back and radiates around the flank as if it's neuropathic. Her blood sugars are poorly controlled. I will place her on gabapentin see if this helps. Also place her on Lantus help better control her blood sugars. She has been on Lantus in the past but has not gotten it since moving here and not having a physician. She's had no urinary symptoms. Her urinalysis is negative except for some ketones as well as a positive nitrite. Do not think this is reflective of infection the patient has only 1 white blood cell in her urine. Patient has no urinary symptoms. Patient is already on several antibiotics for the H. pylori. I think the risk for always the benefit of adding a another antibiotic. I did explain this to the patient and she is agreeable to my plan. Patient has not coming first appointment with her primary care doctor. She is also followed by Dr. Land who she will also be following up with soon. I strongly encouraged to return to ER shows worsening pain, fevers, vomiting, or feels unwell. Patient agrees with plan and will be discharged home. Dictation of this chart was performed using voice recognition software; therefore, there may be some unintended grammatical errors. Discharge - Discharge Clinical Impression: Back pain Qualifiers: Back pain location: low back pain Chronicity: chronic Back pain laterality: left Sciatica presence: without sciatica Qualified Code(s): M54.5 - Low back pain Abdominal pain Qualifiers: Abdominal location: left upper quadrant Qualified Code(s): R10.12 - Left upper quadrant pain Condition: Good Disposition: HOME, SELF-CARE Instructions: Oral Narcotic Medication ([facility]) Additional Instructions: Please return to the ER immediately if you have worsening pain, fevers, vomiting , or feel that your symptoms are worsening and not improving. Please follow-up with Dr. Rosario as scheduled. Please follow-up with your family doctor as scheduled. Do not drive while taking the prescribed medications as they may make you sleepy. Prescriptions: Insulin Glargine,Hum.rec.anlog [Lantus Insulin Inj 300 Unit/3 ml Pen] 15 unit SUBCUT QHS #10 ml Solostar Disposable Greene 1 kit INJ HSP PRN #1 packet PRN Reason: Gabapentin 300 mg PO BID #30 capsule Insulin Glargine,Hum.rec.anlog [Lantus Solostar] 15 unit SQ HSP PRN #10 ml PRN Reason: Oxycodone HCl/Acetaminophen [Percocet 5-325 mg Tablet] 1 tab PO Q4H PRN #15 tablet PRN Reason: Forms: Return to Work Referrals: TIARRA GRAYSON MD [Primary Care Provider] - Follow up in 1 week IVY ROSARIO MD [ACTIVE STAFF] - Follow up in 3-5 days
[2016-08-28] MEDS ORDERED: HYDROMORPHONE HCL INJ/PF 2 MG/ML AMPULE ONE ×2 (03:31→03:34)
[2016-08-28 04:46] VITALS: BP 139/69
--- NOTE | 2016-08-28 08:31 | EKG REPORT ---
SEVERITY:- BORDERLINE ECG - SINUS RHYTHM NONSPECIFIC ST-T CHANGES, ANTERIOR LEADS. : Confirmed by: Macario Rodriguez MD 28-Aug-2016 08:30:42
== END 2016-08-28 05:20 | disposition home or self-care (01) ==
LOC: ER 22:57
DX: M54.5 Low back pain (principal); M54.9 Dorsalgia, unspecified; R10.12 Left upper quadrant pain; R10.9 Unspecified abdominal pain; Z87.891 Personal history of nicotine dependence; K59.00 Constipation, unspecified
CPT/HCPCS: 93005; 99284; 96374; 36415; 82962; 83690; 85025; 80053; 81001; 71010; 93010; J1170; J1815

== ENCOUNTER → 2016-10-03 | Outpatient (CLI) | payer BC | LOC: RAD 07:16 | PROVIDERS: ATTEND Internal Medicine Medical Oncology | DX: C18.9 Malignant neoplasm of colon, unspecified (principal); M53.3 Sacrococcygeal disorders, not elsewhere classified; R10.2 Pelvic and perineal pain | CPT/HCPCS: 72197; 78306; A9576; A9503; Q9969 ==

== ENCOUNTER → 2016-10-10 | Outpatient (CLI) | payer BC | LOC: RAD 16:48 | PROVIDERS: ATTEND Internal Medicine Medical Oncology | DX: C18.9 Malignant neoplasm of colon, unspecified (principal) | CPT/HCPCS: 78815; A9552 ==

== ENCOUNTER 2016-10-26 20:20 | Emergency (ER) | payer BC ==
[2016-10-26] MEDS ORDERED: OXYCODONE-ACETAMINOPHEN 5-325 MG TABLET PO ONE (23:39)
--- NOTE | 2016-10-26 23:42 | ER Document Report ---
ED GI/ - General Chief Complaint: Abdominal Pain Stated Complaint: abdominal pain Time seen by provider: 23:40 Notes: Patient is a 51-year-old female that comes emergency department with chief complaint of left lower abdominal pain and left groin pain. She also reports pain in her left side of her back. She states that she has had this ongoing for about 3-4 months but today it became constant and unbearable. She denies nausea or vomiting, fever or chills. She has had multiple images of this in the past, she has had a colonoscopy and EGD, she had a repeat colonoscopy and biopsies, she states other than gastritis no abnormalities were found and she was treated for H. pylori already. She recently started seeing pain management and was started on Lyrica for suspected neuropathy secondary to diabetes, patient states that she has not had any insulin today but her sugars have been better than at some points previously. She denies any trauma to the area, denies constipation or bloody bowel movements, denies dysuria but does report urinary hesitancy. TRAVEL OUTSIDE OF THE [place] IN LAST 30 DAYS: No - Related Data Allergies/Adverse Reactions: morphine Allergy (Severe, Verified 10/26/16 21:20) Facial swelling cefaclor [From Ceclor] Allergy (Mild, Verified 10/26/16 21:20) Generalized rash Past Medical History - General Information source: Patient, Relative - Social History Smoking Status: Never Smoker Frequency of alcohol use: None Drug Abuse: None Lives with: Family Family History: None - Past Medical History Cardiac Medical History: Denies: Hx Coronary Artery Disease, Hx Heart Attack, Hx Hypertension Pulmonary Medical History: Denies: Hx Asthma, Hx Bronchitis, Hx COPD, Hx Pneumonia Neurological Medical History: Denies: Hx Cerebrovascular Accident, Hx Seizures Endocrine Medical History: Reports: Hx Diabetes Mellitus Type 2 Renal/ Medical History: Denies: Hx Peritoneal Dialysis Musculoskeltal Medical History: Denies Hx Arthritis Past Surgical History: Reports: Hx Bowel Surgery - splenic aneurysm, Hx Cholecystectomy, Hx Hysterectomy - Immunizations Hx Diphtheria, Pertussis, Tetanus Vaccination: Yes Review of Systems - Review of Systems Constitutional: No symptoms reported EENT: No symptoms reported Cardiovascular: No symptoms reported Respiratory: No symptoms reported Gastrointestinal: See HPI Genitourinary: No symptoms reported Female Genitourinary: No symptoms reported Musculoskeletal: See HPI Skin: No symptoms reported Hematologic/Lymphatic: No symptoms reported Neurological/Psychological: See HPI Physical Exam - Vital signs Vitals: Temp Pulse Resp BP Pulse Ox 98.2 F 75 23 H 150/74 H 99 10/26/16 21:21 10/26/16 21:21 10/26/16 21:21 10/26/16 21:21 10/26/16 21:21 Interpretation: Normal - General General appearance: Alert, Anxious In distress: Mild - Patient tearful but does not to be in severe distress - HEENT Head: Normocephalic, Atraumatic Eyes: Tears Conjunctiva: Normal Extraocular movements intact: Yes Eyelashes: Normal Pupils: PERRL Sinus: Normal Nasal: Normal Mouth/Lips: Normal Mucous membranes: Normal Pharynx: Normal Neck: Normal - Respiratory Respiratory status: No respiratory distress Chest status: Nontender Breath sounds: Normal. No: Decreased air movement, Wheezing Chest palpation: Normal - Cardiovascular Rhythm: Regular. No: Tachycardia Heart sounds: Normal auscultation, S1 appreciated, S2 appreciated Murmur: No - Abdominal Inspection: Other - Old ventral scar Distension: No distension Bowel sounds: Normal Tenderness: No: Tender - Actually do not appreciate any tenderness over the entire abdomen, Guarding Organomegaly: No organomegaly - Back Back: Normal, Nontender. No: Vertebra tenderness - Extremities General upper extremity: Normal inspection, Nontender, Normal color, Normal ROM , Normal temperature General lower extremity: Other - There is mild tenderness in the left groin/hip area, range of motion intact, normal distal neurovascular exam, no swelling or erythema, no other abnormality noted - Neurological Neuro grossly intact: Yes Cognition: Normal Orientation: AAOx4 Sanchez Coma Scale Eye Opening: Spontaneous Enola Coma Scale Verbal: Oriented Enola Coma Scale Motor: Obeys Commands Enola Coma Scale Total: 15 Speech: Normal Motor strength normal: LUE, RUE, LLE, RLE Sensory: Normal - Psychological Associated symptoms: Normal affect, Normal mood - Skin Skin Temperature: Warm Skin Moisture: Dry Skin Color: Normal Course - Re-evaluation Re-evalutation: Laboratory workup is unremarkable. I actually cannot appreciate patient specific area of pain in the abdomen although she does have some left groin tenderness which is not severe, no swelling or erythema to the area, range of motion is still present in the hip and lower extremity. Back exam is generally unremarkable. Patient does have leukocyte esterase and white blood cells in her urine consistent with her reported urinary symptoms, she will be treated for a urinary tract infection. On reexamination after pain meds patient is very calm and improved. She states that she will follow up with pain management and to request additional medication to khari Acosta and she is also pending an MRI of the hip. Patient and state they are ready to leave, I did discussed return precautions with them, they state understanding and agreement. - Vital Signs Vital signs: Temp Pulse Resp BP Pulse Ox 98.6 F 66 20 146/72 H 98 10/27/16 01:30 10/27/16 01:30 10/27/16 01:30 10/27/16 01:30 10/27/16 01:30 - Laboratory Result Diagrams: 10/27/16 00:10 10/27/16 00:10 Laboratory results interpreted by me: 10/27/16 10/27/16 00:10 00:10 Glucose 140 H AST 10 L Total Protein 6.0 L Urine Glucose (UA) 50 H Ur Leukocyte Esterase MODERATE H Discharge - Discharge Clinical Impression: Flank pain Abdominal pain Qualifiers: Abdominal location: unspecified location Qualified Code(s): R10.9 - Unspecified abdominal pain Urinary tract infection Qualifiers: Urinary tract infection type: site unspecified Hematuria presence: without hematuria Qualified Code(s): N39.0 - Urinary tract infection, site not specified Condition: Stable Disposition: HOME, SELF-CARE Additional Instructions: Take the Bactrim antibiotic as directed for urinary tract infection. Take the Percocet as directed for pain. Take the Colace to avoid constipation while taking pain medication. Follow-up with your provider for additional management. Consider the follow-up with neurology Return to emergency department for any concerning or worsening symptoms including vomiting, fever, numbness, etc. Prescriptions: Docusate Sodium [Colace 100 mg Capsule] 100 mg PO DAILY #30 capsule Oxycodone HCl/Acetaminophen [Percocet 5-325 mg Tablet] 1 - 2 tab PO Q4H PRN #20 tablet PRN Reason: Sulfamethoxazole/Trimethoprim [Bactrim Ds Tablet] 1 each PO BID #14 tablet Referrals: TIARRA GRAYSON MD [Primary Care Provider] - Follow up as needed
[2016-10-27 00:29] LABS: ABSOLUTE EOSINOPHILS # (AUTO) 0.2 10^3/uL (0.0-0.6); ABSOLUTE LYMPHOCYTES (AUTO) 2.5 10^3/uL (0.5-4.7); ABSOLUTE MONOCYTES (AUTO) 0.4 10^3/uL (0.1-1.4); ABSOLUTE NEUT (AUTO) 3.4 10^3/uL (1.7-8.2); BASOPHILS % (AUTO) 0.6 % (0-2); EOSINOPHILS % (AUTO) 2.4 % (0-6); HEMATOCRIT 37.9 % (36.0-47.0); HEMOGLOBIN 13.3 g/dL (12.0-15.5); LYMPHOCYTES % (AUTO) 38.5 % (13-45); MEAN CORPUSCULAR HEMOGLOBIN 30.6 pg (27.0-33.4); MEAN CORPUSCULAR HGB CONC 35.1 g/dL (32.0-36.0); MEAN CORPUSCULAR VOLUME 87 fl (80-97); MONOCYTES % (AUTO) 6.9 % (3-13); RED BLOOD COUNT 4.35 10^6/uL (3.72-5.28); SEGMENTED NEUTROPHILS % (AUTO) 51.6 % (42-78); WHITE BLOOD COUNT 6.5 10^3/uL (4.0-10.5)
[2016-10-27 00:40] LABS: ALANINE AMINOTRANSFERASE 19 U/L (9-52); ALBUMIN 3.7 g/dL (3.5-5.0); ALKALINE PHOSPHATASE 69 U/L (38-126); ANION GAP 12 (5-19); APPEARANCE,URINE CLEAR; ASPARTATE AMINO TRANSFERASE 10 U/L (14-36); BILIRUBIN,DIRECT 0.1 mg/dL (0.0-0.4); BILIRUBIN,TOTAL 0.5 mg/dL (0.2-1.3); BILIRUBIN,URINE NEGATIVE (NEGATIVE); BLOOD UREA NITROGEN 17 mg/dL (7-20); CALCIUM 9.2 mg/dL (8.4-10.2); CARBON DIOXIDE 27 mmol/L (22-30); CHLORIDE 102 mmol/L (98-107); CREATININE RESULT 0.72 mg/dL (0.52-1.25); GLUCOSE 140 mg/dL (75-110); GLUCOSE, URINE 50 mg/dL (NEGATIVE); KETONES,URINE NEGATIVE (NEGATIVE); LEUKOCYTE ESTERASE,URINE MODERATE (NEGATIVE); NITRITE,URINE NEGATIVE (NEGATIVE); POTASSIUM 3.9 mmol/L (3.6-5.0); PROTEIN,URINE NEGATIVE (NEGATIVE); SODIUM 140.6 mmol/L (137-145); URINE SPECIFIC GRAVITY 1.015; UROBILINOGEN,URINE NEGATIVE mg/dL (<2.0)
[2016-10-27] MEDS ORDERED: SULFAMETHOXAZOLE/TRIMETHOPRIM 800-160 MG TABLET PO ONE (01:08)
[2016-10-27] MEDS ORDERED: HYDROCODONE/ACETAMINOPHEN 5-325 MG 6 TAB/DSPK PO PRN (01:08)
[2016-10-27] MEDS ORDERED: LIDOCAINE 1% INJ-PF (10 MG/ML) 30 ML SDV INJ ONE (01:44)
[2016-10-27] MEDS ORDERED: CEFTRIAXONE INJ 1000 MG VIAL IM ONE (01:44)
[2016-10-27 02:18] VITALS: BP 146/72
== END 2016-10-27 01:30 | disposition home or self-care (01) ==
LOC: ER 20:20
DX: N39.0 Urinary tract infection, site not specified (principal); R10.9 Unspecified abdominal pain; E11.9 Type 2 diabetes mellitus without complications; Z90.49 Acquired absence of other specified parts of digestive tract; Z90.710 Acquired absence of both cervix and uterus; Z88.6 Allergy status to analgesic agent
CPT/HCPCS: 36415; 80053; 81001; 85025; 99284

== ENCOUNTER → 2016-11-12 | Outpatient (CLI) | payer BC | LOC: LAB 10:11 | PROVIDERS: ATTEND Physician Assistant | DX: M79.2 Neuralgia and neuritis, unspecified (principal); G89.4 Chronic pain syndrome | CPT/HCPCS: 36415; 84443; 85652; 86038; 86140; 86430 ==

== ENCOUNTER → 2016-11-18 | Day surgery (SDC) | payer BC ==
--- NOTE | 2016-11-18 15:14 | RADIOLOGY REPORT (SQ) ---
EXAM DESCRIPTION: ARTHRO HIP; FLUORO/NEEDLE PLACEMENT COMPLETED DATE/TIME: 11/18/2016 1:51 pm REASON FOR STUDY: PAIN IN L HIP M25.552 PAIN IN LEFT HIP COMPARISON: None. FLUOROSCOPY TIME: 9 seconds 1 images saved to PACS. LIMITATIONS: None. PROCEDURE: Procedure, risks, benefits and alternatives explained to patient who then gave written c onsent. The left hip was marked and a time-out was called for correct marking verification. Entry s ite marked using fluoroscopic guidance. Hip prepped and draped using sterile technique. Local anes thesia achieved using 1% lidocaine injection. Hypodermic needle introduced into the joint space und er direct fluoroscopic visualization. Non-ionic contrast instilled to confirm intra-articular positi on. Dilute gadolinium solution then injected. Needle removed and entry site covered with sterile b andage. No immediate complications noted. TECHNIQUE: Digital images acquired during fluoroscopy and stored on PACS. Patient immediately take n to the MR suite for additional imaging. INJECTION LOCATION: Left hip. CONTRAST TYPE AND AMOUNT: 1 cc Isovue. 5 cc dilute gadolinium. IMPRESSION: SUCCESSFUL NEEDLE PLACEMENT AND INJECTION FOR LEFT HIP MR ARTHROGRAM. COMMENT: Quality ID [id number]: Final reports for procedures using fluoroscopy that document radiation exp osure indices, or exposure time and number of fluorographic images (if radiation exposure indices are not available) TECHNICAL DOCUMENTATION: JOB ID: [id number] [email or web address]- All Rights Reserved
--- NOTE | 2016-11-18 15:28 | RADIOLOGY REPORT (SQ) ---
EXAM DESCRIPTION: MRI LT LOWER JOINT WITH COMPLETED DATE/TIME: 11/18/2016 2:29 pm REASON FOR STUDY: PAIN IN L HIP M25.552 PAIN IN LEFT HIP COMPARISON: None. TECHNIQUE: Post arthrogram imaging is performed using T1 and T1 and T2 fat saturated sequences of th e pelvis and specific hip of interest. LIMITATIONS: None. FINDINGS: JOINT DISTENSION: Adequate. No loose body. BONE MARROW: No edema. No marrow replacement. FEMORAL HEAD, NECK, AND ACETABULUM: No occult fracture. No osteophytes or subchondral cysts. Normal s phericity of femoral head/neck junction. No acetabular dysplasia. No evidence of femoroacetabular imp ingement. PUBIC RAMI AND ISCHIUM: No occult fracture. SACRUM AND DAVID: SI joints normal in signal. No occult fracture. EFFUSIONS: None. LABRUM AND CARTILAGE: No labral tear. Cartilage of normal thickness without delamination. MUSCLES AND SOFT TISSUES: Adductors and piriformis normal. Abductors and greater trochanteric bursa n ormal without edema or fluid. Iliopsoas bursa without fluid. Hamstring attachments without edema or t ear. PELVIC SOFT TISSUES: No masses or adenopathy. SCIATIC NERVE: Identified without masses. OTHER: No other significant finding. IMPRESSION: NORMAL MRI ARTHROGRAM OF THE HIP. TECHNICAL DOCUMENTATION: JOB ID: [id number] [employer]- All Rights Reserved
== END ==
LOC: RAD 12:32
PROVIDERS: ATTEND Physician Assistant Medical
PROC: BQ01ZZZ Plain Radiography of Left Hip (ICD-10-PCS; principal; 2016-11-18)
DX: M25.552 Pain in left hip (principal)
CPT/HCPCS: 73722; 73525; 77002; A9576

== ENCOUNTER 2016-12-17 18:03 | Emergency (ER) | payer BC ==
[2016-12-17] MEDS ORDERED: ONDANSETRON 4 MG TAB.RAPDIS PO ONE (19:30)
[2016-12-17] MEDS ORDERED: NORMAL SALINE 1000 ML 1,000 ML IV PRN (19:31)
--- NOTE | 2016-12-17 19:32 | ER Document Report ---
ED Medical Screen (RME) - General Chief Complaint: Dizziness Stated Complaint: DIZZINESS Time Seen by Provider: 12/17/16 19:30 Mode of Arrival: Ambulatory Information source: Patient Notes: -year-old female with a history of diabetes, diabetic neuropathy, fibromyalgia presents to the emergency room with 2 days history of vertigo TRAVEL OUTSIDE OF THE [place] IN LAST 30 DAYS: No - Related Data Allergies/Adverse Reactions: morphine Allergy (Severe, Verified 12/17/16 18:03) Facial swelling cefaclor [From Ceclor] Allergy (Mild, Verified 12/17/16 18:03) Generalized rash Past Medical History - Past Medical History Cardiac Medical History: Denies: Hx Coronary Artery Disease, Hx Heart Attack, Hx Hypertension Pulmonary Medical History: Denies: Hx Asthma, Hx Bronchitis, Hx COPD, Hx Pneumonia Neurological Medical History: Denies: Hx Cerebrovascular Accident, Hx Seizures Endocrine Medical History: Reports: Hx Diabetes Mellitus Type 2 Renal/ Medical History: Denies: Hx Peritoneal Dialysis Musculoskeltal Medical History: Denies Hx Arthritis Past Surgical History: Reports: Hx Bowel Surgery - splenic aneurysm, Hx Cholecystectomy, Hx Hysterectomy - Immunizations Hx Diphtheria, Pertussis, Tetanus Vaccination: Yes Physical Exam - Vital signs Vitals: Temp Pulse Resp BP Pulse Ox 97.8 F 79 18 131/84 H 100 12/17/16 18:03 12/17/16 18:03 12/17/16 18:03 12/17/16 18:03 12/17/16 18:03 Course - Vital Signs Vital signs: Temp Pulse Resp BP Pulse Ox 97.8 F 79 18 131/84 H 100 12/17/16 18:03 12/17/16 18:03 12/17/16 18:03 12/17/16 18:03 12/17/16 18:03
--- NOTE | 2016-12-17 20:17 | RADIOLOGY REPORT (SQ) ---
EXAM DESCRIPTION: CT HEAD WITHOUT COMPLETED DATE/TIME: 12/17/2016 8:02 pm REASON FOR STUDY: vertigo COMPARISON: None. TECHNIQUE: Axial images acquired through the brain without intravenous contrast. Images reviewed wi th bone, brain and subdural windows. Images stored on PACS. All CT scanners at this facility use dose modulation, iterative reconstruction, and/or weight based d osing when appropriate to reduce radiation dose to as low as reasonably achievable (ALARA). [facility]: Dose Right [facility]: CareDose [facility]: Dose Right [facility]: Teradose 4D [facility]: [employer]Office RADIATION DOSE: 60.32 mGy. LIMITATIONS: None. FINDINGS: VENTRICLES: Normal size and contour. CEREBRUM: No masses. No hemorrhage. No midline shift. Normal acevedo/white matter differentiation. N o evidence for acute infarction. CEREBELLUM: No masses. No hemorrhage. No alteration of density. No evidence for acute infarction. EXTRAAXIAL SPACES: No fluid collections. No masses. ORBITS AND GLOBE: No intra- or extraconal masses. Normal contour of globe without masses. CALVARIUM: No fracture. PARANASAL SINUSES: No fluid. Maxillary sinus mucous retention cysts. . SOFT TISSUES: No mass or hematoma. OTHER: No other significant finding. IMPRESSION: No acute intracranial findings. TECHNICAL DOCUMENTATION: JOB ID: [id number] Quality ID # [id number]: Final reports with documentation of one or more dose reduction techniques (e.g., Au tomated exposure control, adjustment of the mA and/or kV according to patient size, use of iterative reconstruction technique) 2010 [employer]- All Rights Reserved
[2016-12-17 20:35] LABS: ABSOLUTE BASOPHILS # (AUTO) 0.1 10^3/uL (0.0-0.2); ABSOLUTE EOSINOPHILS # (AUTO) 0.1 10^3/uL (0.0-0.6); ABSOLUTE LYMPHOCYTES (AUTO) 1.2 10^3/uL (0.5-4.7); ABSOLUTE MONOCYTES (AUTO) 0.3 10^3/uL (0.1-1.4); ABSOLUTE NEUT (AUTO) 4.9 10^3/uL (1.7-8.2); BASOPHILS % (AUTO) 0.9 % (0-2); EOSINOPHILS % (AUTO) 0.9 % (0-6); HEMATOCRIT 43.8 % (36.0-47.0); HGB HCT DIFFERENCE 1.2; LYMPHOCYTES % (AUTO) 18.6 % (13-45); MEAN CORPUSCULAR HEMOGLOBIN 30.5 pg (27.0-33.4); MEAN CORPUSCULAR HGB CONC 34.3 g/dL (32.0-36.0); MEAN CORPUSCULAR VOLUME 89 fl (80-97); MONOCYTES % (AUTO) 4.3 % (3-13); RED BLOOD COUNT 4.93 10^6/uL (3.72-5.28); RED CELL DISTRIBUTION WIDTH 13.2 % (11.5-14.0); SEGMENTED NEUTROPHILS % (AUTO) 75.3 % (42-78); WHITE BLOOD COUNT 6.5 10^3/uL (4.0-10.5)
[2016-12-17 20:46] LABS: APPEARANCE,URINE CLEAR; BILIRUBIN,URINE NEGATIVE (NEGATIVE); GLUCOSE, URINE NEGATIVE (NEGATIVE); KETONES,URINE TRACE mg/dL (NEGATIVE); LEUKOCYTE ESTERASE,URINE SMALL (NEGATIVE); NITRITE,URINE NEGATIVE (NEGATIVE); PROTEIN,URINE NEGATIVE (NEGATIVE); URINE SPECIFIC GRAVITY 1.016; UROBILINOGEN,URINE NEGATIVE mg/dL (<2.0)
[2016-12-17] MEDS ORDERED: ONDANSETRON HCL INJ/PF 4 MG/2 ML SDV ONE (20:49)
[2016-12-17] MEDS ORDERED: DIAZEPAM INJ 10 MG/2 ML DISP.SYRIN IV ONE (20:50)
[2016-12-17] MEDS ORDERED: MECLIZINE HCL 25 MG TABLET PO ONE (20:50)
[2016-12-17] MEDS ORDERED: PROCHLORPERAZINE EDISYLATE INJ 10 MG/2 ML VIAL IM ONE (20:50)
[2016-12-17] MEDS ORDERED: KETOROLAC TROMETHAMINE INJ/PF 30 MG/1 ML SDV IV ONE (20:50)
[2016-12-17] MEDS ORDERED: DIPHENHYDRAMINE HCL 50 MG/ML VIAL IV ONE (20:50)
[2016-12-17] MEDS ORDERED: ONDANSETRON HCL INJ/PF 4 MG/2 ML SDV IV ONE (20:50)
--- NOTE | 2016-12-17 20:50 | ER Document Report ---
ED Dizziness/Weakness - General Mode of Arrival: Ambulatory Information source: Patient TRAVEL OUTSIDE OF THE [place] IN LAST 30 DAYS: No - HPI Patient complains to provider of: Dizziness Associated symptoms: Other - See above <ARMANI WATSON - Last Filed: 12/17/16 22:37> <DAYAMIALESSIAYANNICK - Last Filed: 12/18/16 00:10> - General Chief Complaint: Dizziness Stated Complaint: DIZZINESS Time Seen by Provider: 12/17/16 19:30 Notes: Patient is a 51 year old female, with a past medical history including diabetes and anxiety, who presents to the emergency department complaining of dizziness onset at 0830 this morning. Patient states she woke up and immediately felt dizzy like the "world was moving" as well as nauseated and she went back to sleep. Patient reports starting a headache later in the day in the front of her head, being off balance, vomiting, and double vision. Patient denies abdominal pain, numbness, tingling, and weakness. PCP: Dr. Lloyd (ARMANI WATSON) - Related Data Allergies/Adverse Reactions: morphine Allergy (Severe, Verified 12/17/16 18:03) Facial swelling cefaclor [From Ceclor] Allergy (Mild, Verified 12/17/16 18:03) Generalized rash Past Medical History - General Information source: Patient - Social History Smoking Status: Never Smoker Chew tobacco use (# tins/day): No Frequency of alcohol use: None Drug Abuse: None Family History: None, Reviewed & Not Pertinent Patient has suicidal ideation: No Patient has homicidal ideation: No Endocrine Medical History: Reports: Hx Diabetes Mellitus Type 2 Musculoskeltal Medical History: Reports Hx Fibromyalgia Psychiatric Medical History: Reports: Hx Anxiety Past Surgical History: Reports: Hx Bowel Surgery - splenic aneurysm, Hx Cholecystectomy, Hx Hysterectomy - Immunizations Hx Diphtheria, Pertussis, Tetanus Vaccination: Yes <ARMANI WATSON - Last Filed: 12/17/16 22:37> Review of Systems - Review of Systems Constitutional: denies: Weakness EENT: See HPI, Blurred vision Cardiovascular: See HPI, Dizziness Respiratory: No symptoms reported Gastrointestinal: See HPI, Nausea, Vomiting. denies: Abdominal pain Genitourinary: No symptoms reported Female Genitourinary: No symptoms reported Musculoskeletal: No symptoms reported Skin: No symptoms reported Hematologic/Lymphatic: No symptoms reported Neurological/Psychological: See HPI, Headaches, Other - off balance. denies: Numbness, Tingling -: Yes All other systems reviewed and negative <ARMANI WATSON - Last Filed: 12/17/16 22:37> Physical Exam <ARMANI WATSON - Last Filed: 12/17/16 22:37> <YANNICK PRADO - Last Filed: 12/18/16 00:10> - Vital signs Vitals: Temp Pulse Resp BP Pulse Ox 97.8 F 79 18 131/84 H 100 12/17/16 18:03 12/17/16 18:03 12/17/16 18:03 12/17/16 18:03 12/17/16 18:03 - Notes Notes: GENERAL: Alert, interacts well. No acute distress. HEAD: Normocephalic, atraumatic. EYES: Pupils equal, round, and reactive to light. Extraocular movements intact. No ataxia. No visual field defects. ENT: Oral mucosa moist, tongue midline. Positive [place] Hallpike test to the left. Right TM injected with cloudy fluid behind it. Left TM same but with clear fluid and some scarring. NECK: Full range of motion. Supple. Trachea midline. LUNGS: Clear to auscultation bilaterally, no wheezes, rales, or rhonchi. No respiratory distress. HEART: Regular rate and rhythm. No murmurs, gallops, or rubs. ABDOMEN: Soft, non-tender. Non-distended. Bowel sounds present in all 4 quadrants. EXTREMITIES: Moves all 4 extremities spontaneously. No edema. No cyanosis. NEUROLOGICAL: Alert and oriented x3. Normal speech. Cranial nerves II through XII grossly intact. Biceps and patellar DTRs 2+ bilaterally. No difficulty with heel to gastelum test. Dizziness worse when sitting upright. PSYCH: Normal affect, normal mood. SKIN: Warm, dry, normal turgor. No rashes or lesions noted. (ARMANI WATSON) Course - Laboratory Result Diagrams: 12/17/16 20:10 12/17/16 20:55 <ARMANI WATSON - Last Filed: 12/17/16 22:37> - Laboratory Result Diagrams: 12/17/16 20:10 12/17/16 20:55 <YANNICK PRADO - Last Filed: 12/18/16 00:10> - Re-evaluation Re-evalutation: 12/17/16 21:45 Patient states that the dizziness has improved some but it is still exacerbated when sitting upright and she is still nauseated (ARMANI WATSON) 12/17/16 23:11 CBC unremarkable, CMP unremarkable, urinalysis shows trace ketones and small leukocyte esterase, patient has no symptoms of UTI thus this will not be treated. CT scan of the head is negative. Patient's symptoms improved with initial IV treatment and now that she has gotten her Antivert she is able to ambulate in the room in front of me without difficulty. All dizziness is resolved. No evidence of stroke, this appears to be peripheral vertigo. Patient will be discharged home and treated with Antivert, Zofran and Phenergan. (YANNICK PRADO) - Vital Signs Vital signs: Temp Pulse Resp BP Pulse Ox 97.9 F 67 18 132/66 H 97 12/17/16 23:26 12/17/16 23:26 12/17/16 23:26 12/17/16 23:26 12/17/16 23:26 - Laboratory Laboratory results interpreted by nv: 12/17/16 12/17/16 20:10 20:55 Chloride 108 H Glucose 148 H Total Protein 5.7 L Albumin 3.2 L Urine Ketones TRACE H Ur Leukocyte Esterase SMALL H Discharge <ARMANI WATSON - Last Filed: 12/17/16 22:37> <YANNICK PRADO - Last Filed: 12/18/16 00:10> - Discharge Clinical Impression: Peripheral vertigo involving left ear Condition: Stable Disposition: HOME, SELF-CARE Additional Instructions: Vertigo Vertigo - the false sense of motion or spinning - is the most common symptom of dizziness. Sitting up or moving around may make it worse. Sometimes vertigo is severe enough to cause nausea and vomiting. Vertigo usually results from a problem with the nerves and the structures of the balance mechanism in your inner ear (vestibular system), which sense movement and changes in your head position. Abnormal rhythmic eye movements ( nystagmus) almost always accompany vertigo. Causes of vertigo may include: Benign paroxysmal positional vertigo (BPPV). BPPV involves intense, brief episodes of vertigo associated with a change in the position of your head, often when you turn over in bed or sit up in the morning. It occurs when normal calcium carbonate crystals (otoconia) break loose and fall into the wrong part of the canals in your inner ear. When these particles shift, they stimulate sensors in your ear, producing an episode of vertigo. Doctors don't know what causes BPPV, but it may be a natural result of aging. Trauma to your head also may lead to BPPV. Meclizine You are to take meclizine (Antivert, Bonine) for control of symptoms. This is a drug of the antihistamine family which is useful for controlling nausea, dizziness, and motion sickness. Meclizine is usually taken three times a day, as needed. It's more effective at preventing symptoms than at relieving severe symptoms once they occur. It can be taken BEFORE activities which are likely to cause dizziness or nausea. Common side effects of this medicine are drowsiness and dry mouth. You should use caution in driving or operating machinery while taking this medication. In particular, you should not drive long distances or drive at night while taking this medicine. Meclizine should not be combined with alcohol , narcotics, or sedative medications without consulting your physician. Prescriptions: Ondansetron [Zofran Odt 4 mg Tablet] 1 - 2 tab PO Q4HP PRN #10 tab.rapdis PRN Reason: Meclizine HCl 25 mg PO TIDP PRN #30 tablet PRN Reason: Promethazine HCl [Phenergan 25 mg Supp.rect] 1 supp [place] Q6H #12 supp.rect Forms: Elevated Blood Pressure, Return to Work Scribe Attestation: 12/18/16 00:10 I personally performed the services described in the documentation, reviewed and edited the documentation which was dictated to the scribe in my presence, and it accurately records my words and actions. (YANNICK PRADO) Scribe Documentation - Scribe Written by Bhargav:: bhargav Hernandez, 12/17/162122 acting as scribe for :: Amisha <ARMANI WATSON - Last Filed: 12/17/16 22:37>
[2016-12-17 21:22] LABS: ALANINE AMINOTRANSFERASE 22 U/L (9-52); ALBUMIN 3.2 g/dL (3.5-5.0); ALKALINE PHOSPHATASE 50 U/L (38-126); ANION GAP 7 (5-19); ASPARTATE AMINO TRANSFERASE 14 U/L (14-36); BILIRUBIN,DIRECT 0.3 mg/dL (0.0-0.4); BILIRUBIN,TOTAL 0.9 mg/dL (0.2-1.3); BLOOD UREA NITROGEN 10 mg/dL (7-20); CALCIUM 8.6 mg/dL (8.4-10.2); CARBON DIOXIDE 25 mmol/L (22-30); CHLORIDE 108 mmol/L (98-107); CREATININE RESULT 0.57 mg/dL (0.52-1.25); GLUCOSE 148 mg/dL (75-110); POTASSIUM 4.2 mmol/L (3.6-5.0); SODIUM 139.5 mmol/L (137-145); TOTAL PROTEIN 5.7 g/dL (6.3-8.2)
[2016-12-17 23:27] VITALS: BP 132/66
== END 2016-12-17 23:26 | disposition home or self-care (01) ==
LOC: ER 18:03
DX: R42 Dizziness and giddiness (principal); E11.9 Type 2 diabetes mellitus without complications; F41.9 Anxiety disorder, unspecified; R11.0 Nausea; R51 Headache; H53.2 Diplopia
CPT/HCPCS: 99284; 96372; 96361; 96374; 96375; 36415; 85025; 80053; 81001; 70450; J3360; J1200; S0119; J1885; J0780; J2405; J7030